=== PATIENT | female | born 1970 | race Caucasian/White ===

== ENCOUNTER 2024-03-09 22:22 | Inpatient (IN) | payer OTHER, SELFPAY ==
[2024-03-09 18:29] VITALS: BP 137/87
--- NOTE | 2024-03-09 18:29 | ED.GENMED ---
ED Provider Triage
<THONG Santillan Jr. Last Filed: 03/09/24 18:32>
-
Patient seen by provider in Triage?: Seen in Triage
Attestation: A medical screening examination has been initiated by a qualified medical provider. Based on the assessment performed at this time, it has been determined that an emergent medical condition may exist and the patient has been informed
that further medical evaluation and possible additional diagnostic testing may be needed.
HPI: 53-year-old female presenting to the emergency department today with concerns of ongoing cough. Was treated for potential pneumonia with doxycycline 1 week ago at an urgent care but symptoms worsening today went back to the urgent care had an
x-ray that showed a new infiltrate there concern of failed outpatient management. Patient has immunosuppression due to taking immunosuppressive medications for autoimmune disorder. Initial labs ordered patient may need escalation of care
GENERAL: Alert , in no apparent distress
EYE: No visual abnormalities.
NECK: Trachea midline
ENT: No visible abnormalities.
LUNGS: No acute respiratory distress
NEUROLOGICAL: Alert and oriented
SKIN: Skin intact. No visible changes.
MUSCULOSKELETAL: Moving extremities normally
PSYCH: Normal and appropriate interaction.
This is a medical evaluation conducted in person to initiate diagnostic evaluation and provide initial therapeutics. Please see further documentation by the treating clinician.
History of Present Illness
<THONG Santillan Jr. Last Filed: 03/09/24 18:32>
General
Chief Complaint: Breathing Problem
Time Seen by Provider: 03/09/24 20:45
<Asif Radford DO - Last Filed: 03/09/24 23:15>
General
Source: patient, records and spouse
Exam Limitations: none
Nursing documentation reviewed up to this point in time: agreed with
History of Present Illness
History of Present Illness:
Agree with provider triage note
Past History
<THONG Santillan Jr. Last Filed: 03/09/24 18:32>
Past History
ED Past Medical History: HTN, Other (Neuropathy), Other (Migraines) and Other (Hiatal hernia)
ED Past Surgical History: Tonsilectomy and Other (Left breast biopsy, ACL repair)
Social History
Tobacco: Smoker
Drug: None
Personal:
Living: with family
Employment: Not employed
Family History
Family History: Other
Review of Systems
<Asif Radford, DO - Last Filed: 03/09/24 23:15>
Review of Systems
Allergies reviewed?: Yes
All Other Systems: Not applicable
Constitutional: Reports fever and chills
EENT: Reports no symptoms
Respiratory: Reports cough and trouble breathing
Cardiac: Reports no symptoms
ABD/GI: Reports no symptoms
: Reports no symptoms
Musculoskeletal: Reports no symptoms
Skin: Reports no symptoms
Neurological: Reports no symptoms
Endocrine: Reports no symptoms
Hematologic/Lymphatic: Reports no symptoms
Psychiatric: Reports no symptoms
Phy Exam
<Asif Radford, DO - Last Filed: 03/09/24 23:15>
Physical Exam
Physical Exam:
Physical Exam
General: Afebrile
Neck: supple. no meningeal signs. normal posterior pharynx
Heart: s1/s2 regular rate and rhythm, no murmur. equal radial
pulses.
HEENT: Pupils equal round reactive to light, EOMI
Lungs: Mild respiratory distress. Rhonchi right lung base
Abdomen: normal bowel sounds. not tender. no CVAT
Neuro: alert and oriented. no focal neurological deficits cranial nerves II through XII intact
Skin: no rash
Psychiatric: well kept. interactive and cooperative
Extremities: no edema. no calf tenderness. negative homans. good distal pulses
Scores
<Asif aRdford, DO - Last Filed: 03/09/24 23:15>
Heart Failure Risk
Heart Failure Risk Score: Not Applicable
Course
<Tyrell Huffman Jr., PA-C - Last Filed: 03/09/24 18:32>
Orders/Labs/Results
Orders:
Orders
03/09/24 18:42
Complete Blood Count/With Diff Urgent
Comprehensive Metabolic Panel Urgent
Lactic Acid Urgent
Magnesium Urgent
NT-proBNP Urgent
Troponin I Urgent
03/09/24 21:14
COVID-19 Antigen Urgent
Source: Nasal Swab
Lactic Acid Q4H
Comment: CANCEL 2nd LACTIC ACID IF 1st LACTIC ACID IS LESS THAN 2
Blood Culture Q30M
[place] Source: Blood/Venous
Specimen Description:
Influenza A+B Rapid Molecular Urgent
NANDA Source: Nasal Swab
Specimen Description:
03/09/24 21:21
CefTRIAXone [Rocephin] 2,000 mg IV NOW STA
Doxycycline [Vibramycin] 100 mg PO NOW STA
03/09/24 21:33
Blood Culture Q30M
NAN[place] Source: Blood/Venous
Specimen Description:
03/09/24 21:58
Admit/Transfer Patient As Directed
Co-Sign Provider:
Level of Care: Inpatient admission
Assign to:: Medical/Surgical
Physician / Group: livia
Diagnosis: pnueumonia
Reason for Hospitalization: pneumonia
Expected length of stay greater than two midnights?: Yes
ELOS- Estimated Length of Stay in days: 3
I certify the patient meets the requirements for IP care: Yes
PRN Pain Medication Management As Directed
May give lesser potent ordered pain med per pt: Yes
preference::
Protocol:: Medication orders for pain may be administered in a
manner that supports deferring to patient preference
when the pt is:
- Requesting an ordered lesser potent pain medication.
Least to most potent pain medications are defined
as: acetaminophen < NSAID < tramadol < opioids
(morphine, oxycodone, hydromorphone).
- Requesting a lesser dose of the same medication IF
ORDERED.
- Requesting a less intrusive route of administration
if both routes are prescribed by the provider (PO <
IV).
03/09/24 21:59
Code Status As Directed
Resuscitation Status: Full Code
Abnormal Lab Results
03/09/24
18:42
WBC 18.5 H 10^3/uL
(4.8-10.8)
MCH 31.5 H pg
(27.0-31.0)
Plt Count 504 H 10^3/uL
(130-400)
Abs Immat Gran (auto) 0.2 H 10^3/uL
(0-0.05)
Absolute Neuts (auto) 15.2 H 10^3/uL
(1.4-6.5)
Absolute Monos (auto) 0.7 H 10^3/uL
(0.1-0.6)
Immature Gran % 1.2 H %
(0-0.5)
Neutrophils % 82.2 H %
(42.2-75.2)
Lymphocytes % 12.3 L %
(20.5-51.1)
BUN 18 H mg/dl
(7-17)
Glucose 121 H mg/dl
(70-99)
03/09/24 18:42
03/09/24 18:42
Vital Signs
Initial and Last Documented VS:
Initial Vital Signs
Temp Pulse Resp BP
98.4 F 84 20 137/87
03/09/24 18:29 03/09/24 18:29 03/09/24 18:29 03/09/24 18:29
Last Documented Vital Signs
Temp Pulse Resp BP Pulse Ox
98.4 F 60 13 142/76 94
03/09/24 18:29 03/09/24 22:00 03/09/24 22:00 03/09/24 22:00 03/09/24 22:00
<Asif Radford, DO - Last Filed: 03/09/24 23:15>
Orders/Labs/Results
Orders:
Orders
03/09/24 18:42
Complete Blood Count/With Diff Urgent
Comprehensive Metabolic Panel Urgent
Lactic Acid Urgent
Magnesium Urgent
NT-proBNP Urgent
Troponin I Urgent
03/09/24 21:14
COVID-19 Antigen Urgent
Source: Nasal Swab
Lactic Acid Q4H
Comment: CANCEL 2nd LACTIC ACID IF 1st LACTIC ACID IS LESS THAN 2
Blood Culture Q30M
NANDA Source: Blood/Venous
Specimen Description:
Influenza A+B Rapid Molecular Urgent
NANDA Source: Nasal Swab
Specimen Description:
03/09/24 21:21
CefTRIAXone [Rocephin] 2,000 mg IV NOW STA
Doxycycline [Vibramycin] 100 mg PO NOW STA
03/09/24 21:33
Blood Culture Q30M
NANDA Source: Blood/Venous
Specimen Description:
03/09/24 21:58
Admit/Transfer Patient As Directed
Co-Sign Provider:
Level of Care: Inpatient admission
Assign to:: Medical/Surgical
Physician / Group: livia
Diagnosis: pnueumonia
Reason for Hospitalization: pneumonia
Expected length of stay greater than two midnights?: Yes
ELOS- Estimated Length of Stay in days: 3
I certify the patient meets the requirements for IP care: Yes
PRN Pain Medication Management As Directed
May give lesser potent ordered pain med per pt: Yes
preference::
Protocol:: Medication orders for pain may be administered in a
manner that supports deferring to patient preference
when the pt is:
- Requesting an ordered lesser potent pain medication.
Least to most potent pain medications are defined
as: acetaminophen < NSAID < tramadol < opioids
(morphine, oxycodone, hydromorphone).
- Requesting a lesser dose of the same medication IF
ORDERED.
- Requesting a less intrusive route of administration
if both routes are prescribed by the provider (PO <
IV).
03/09/24 21:59
Code Status As Directed
Resuscitation Status: Full Code
Abnormal Lab Results
03/09/24
18:42
WBC 18.5 H 10^3/uL
(4.8-10.8)
MCH 31.5 H pg
(27.0-31.0)
Plt Count 504 H 10^3/uL
(130-400)
Abs Immat Gran (auto) 0.2 H 10^3/uL
(0-0.05)
Absolute Neuts (auto) 15.2 H 10^3/uL
(1.4-6.5)
Absolute Monos (auto) 0.7 H 10^3/uL
(0.1-0.6)
Immature Gran % 1.2 H %
(0-0.5)
Neutrophils % 82.2 H %
(42.2-75.2)
Lymphocytes % 12.3 L %
(20.5-51.1)
BUN 18 H mg/dl
(7-17)
Glucose 121 H mg/dl
(70-99)
03/09/24 18:42
03/09/24 18:42
Vital Signs
Initial and Last Documented VS:
Initial Vital Signs
Temp Pulse Resp BP
98.4 F 84 20 137/87
03/09/24 18:29 03/09/24 18:29 03/09/24 18:29 03/09/24 18:29
Last Documented Vital Signs
Temp Pulse Resp BP Pulse Ox
98.4 F 60 13 142/76 94
03/09/24 18:29 03/09/24 22:00 03/09/24 22:00 03/09/24 22:00 03/09/24 22:00
<Asif Radford DO - Last Filed: 03/09/24 23:15>
MDM/Problems Addressed
Differential Diagnosis Includes:
Pneumonia, PE
MDM/Problems Addressed:
53-year-old female with pneumonia, failing outpatient treatment.
Chronic conditions affecting care: Other (Psoriatic arthritis)
<Asif Radford DO - Last Filed: 03/09/24 23:15>
*Radiology
Radiology exam reviewed: radiology read reviewed (Chest x-ray from urgent care shows hazy infiltrate right lung base)
*Pulse Oximetry
Patient hypoxic: no
*Critical Care Note
Total Time (30-74mins, 75-104mins- exclusive of procedures): Not Applicable
Data Reviewed
Review of Other/Old Records Reveals: Radiology Studies (cxr from shows right side pneumonia)
Source: records
<Asif Radford DO - Last Filed: 03/09/24 23:15>
Patient Management
Social determinants of health affecting care: Living situation
Discussion with other providers: Hospitalist
Escalation/DeEscalation of care consider admission/obs:
admit indicated
ED Attending Note
<Tyrell Huffman Jr., PA-C - Last Filed: 03/09/24 18:32>
-
Portions of this chart may have been created with voice recognition software.� Occasional wrong word or��sound alike� substitutions may have occurred due to the inherent limitations of voice recognition software.
Discharge Plan
Departure
Patient Disposition: Admit
Date of Disposition: 03/09/24
Time of Disposition: 21:15
Admit to: Med/Surg
Presentation/result/management discussed w/ accepting MD/DO: Hospitalist
Patient with high blood pressure during this ER visit?: Yes
Condition: Fair
Discharge Problem:
Right lower lobe pneumonia
Interventions
Interventions:
*Risk Screen - Suicide Last Done: 03/09/24 18:29
*General Assessment Last Done: 03/09/24 18:29
*Neglect/Abuse Screening Last Done: 03/09/24 18:29
ED- Fall Risk Assessment Last Done: 03/09/24 20:47
*ED COVID-19 Vaccine History Last Done: 03/09/24 20:46
ED- Cardiac Assessment Last Done: 03/09/24 20:47
ED- Pulmonary Assessment Last Done: 03/09/24 20:47
[2024-03-09 18:58] LABS: % Basophils 0.4 % (0-2); % Eosinophils 0.1 % (0-6); % Immature Granulocytes 1.2 % (0-0.5); % Lymphocytes 12.3 % (20.5-51.1); % Monocytes 3.8 % (1.7-9.3); % Neutrophils 82.2 % (42.2-75.2); Absolute Basophils 0.1 10^3/uL (0-0.2); Absolute Immature Granulocytes 0.2 10^3/uL (0-0.05); Absolute Lymphocytes 2.3 10^3/uL (1.2-3.4); Absolute Monocytes 0.7 10^3/uL (0.1-0.6); Absolute Neutrophils 15.2 10^3/uL (1.4-6.5); Hematocrit 43.3 % (37.0-47.0); Hemoglobin 14.9 g/dL (12.0-16.0); Mean Corp Hgb Conc. 34.4 g/dL (33.0-37.0); Mean Corpuscular Hgb 31.5 pg (27.0-31.0); Mean Corpuscular Volume 91.5 fL (81.0-99.0); Mean Platelet Volume 8.6 fL (7.4-10.4); Nucleated Red Blood Cells % 0 %; Platelet Count 504 10^3/uL (130-400); Red Blood Cell Count 4.73 10^6/uL (4.20-5.40); Red Cell Dist. Width 12.4 % (11.5-14.5); White Blood Cell Count 18.5 10^3/uL (4.8-10.8)
[2024-03-09 19:07] LABS: Lactic Acid 1.7 mmol/L (0.7-2.0)
[2024-03-09 19:22] LABS: NT-proBNP 51.4 pg/ml; Troponin I < 0.012 ng/ml
[2024-03-09 19:23] LABS: ALT (SGPT) 29 U/L (0-35); AST (SGOT) 24 U/L (14-36); Albumin 4.8 g/dl (3.5-5.0); Alkaline Phosphatase 70 U/L (38-126); Blood Urea Nitrogen 18 mg/dl (7-17); Carbon Dioxide 25 mmol/L (22-30); Chloride 101 mmol/L (98-107); Glucose 121 mg/dl (70-99); Magnesium 2.2 mg/dl (1.6-2.3); Potassium 4.6 mmol/L (3.5-5.1); Sodium 138 mmol/L (135-145); Total Bilirubin 0.5 mg/dl (0.2-1.3); Total Protein 7.4 g/dl (6.3-8.2); eGFR > 60.00
[2024-03-09 20:45] VITALS: BP 153/70
[2024-03-09 20:46] VITALS: BMI 32.7
[2024-03-09 21:00] VITALS: BP 136/88
[2024-03-09] MEDS: VIBRAMYCIN 100 MG PO (21:32)
[2024-03-09] MEDS: ROCEPHIN 2000 MG IV (21:34)
--- NOTE | 2024-03-09 21:35 | HPS.HSE ---
Family Physician
-
Family Physician: NOT KNOW UNKNOWN - PT DOES
Chief Complaint
-
cough
History of Present Illness
53-year-old female with PMH for psoriasis, migraine HOSKINS, anxiety presented to us with productive cough with greenish yellow sputum for past three weeks. patient also stated intermittent greenish bloody drainage from nose as well. she is been having
fever for past six days. her highest temp was 101. she was taking Tylenol at home. she was evaluated by urgent care last . she was prescribed prednisone, doxy and albuterol for walking pneumonia with no relief in her symptoms. she went to
urgent care today. the chest x ray obtained today at urgent care was noted to have developing pneumonia. she complained of frontal HOSKINS. she was also noted dizzy. she also complained of b/l side pain pain. right side hurts more than left. denied
abdominal pain,n,v,d. denied dysuria or hematuria.
patient received iv ceftriaxone and doxy in ER. admitting for further management.
Medical History
Past Medical History
Past Medical History: Reports Other
Additional Past Medical History:
migraine HOSKINS
degnerative disc disease
psoriasis
Past Surgical History: Reports Other
Additional Past Surgical History:
tonsillectomy
hysterectomy
breast lumpectomy
ACL repair
Social History
Tobacco: Smoker (1-2 cigarettes' daily)
Alcohol: Occasional
Drug: Other (occasional weeds)
Personal:
Living: With Family
Family History
Family History: Not pertinent
Allergies / Home Medications
Allergies reflects when Allergies were last updated in [facility].
Home Medications with original date entered in [facility]
Allergy/Medication List:
Allergies
Allergy/AdvReac Type Severity Reaction Status Date / Time
amoxicillin Allergy Unknown Hives Verified 03/09/24 18:35
levofloxacin [From Levaquin] Allergy Unknown Hives Verified 03/09/24 18:35
adhesive Allergy Rash Verified 03/09/24 18:35
Penicillins Allergy GI upset Verified 03/09/24 18:35
Home Medications
acetaminophen 500 mg tablet (Tylenol Extra Strength) 1,000 mg PO BID 03/09/24
albuterol sulfate 90 mcg/actuation aerosol inhaler 2 puff inhalation R QID 03/09/24
cyclosporine 0.05 % eye drops in a dropperette (Restasis) 2 drp BOTH EYES HS 03/09/24
diphenhydramine 25 mg-acetaminophen 500 mg tablet (Tylenol PM Extra Strength) 2 tab PO HS 03/09/24
doxycycline hyclate 100 mg capsule 100 mg PO DAILY 03/09/24
sertraline 50 mg tablet 50 mg PO DAILY 03/09/24
therapeutic multivitamin 2 tab PO DAILY 03/09/24
Review of Systems
-
Constitutional: Reports Fever
EENT: Reports No Symptoms
Respiratory: Reports Cough and Trouble Breathing
Cardiac: Reports Chest Pain
Abdomen/GI: Reports No Symptoms
: Reports No Symptoms
Musculoskeletal: Reports No Symptoms
Skin: Reports No Symptoms
Neurological: Reports Dizzy and Headache
Endocrine: Reports No Symptoms
Hematologic/Lymphatic: Reports No Symptoms
Psych: Reports No Symptoms
Physical Exam
Vital Signs
Vital Signs
Temp Pulse Resp BP Pulse Ox
98.4 F 84 20 153/70 97
03/09/24 18:29 03/09/24 18:29 03/09/24 18:29 03/09/24 20:45 03/09/24 20:47
Physical Exam
General: Well Developed, Well Nourished and No Apparent Distress
HEENT: NormoCephalic, Moist mucous membranes and Atraumatic
Respiratory: Rhonchi
Cardiac: S1/S2 and Regular Rhythm; No Murmur or Rub
GI: Soft, Non Tender, Non Distended and Normal Bowel Sounds; No Organomegaly
Rectal: Deferred by Provider
Musculoskeletal: No Clubbing, No Cyanosis and No Edema
Skin: No Rash
Neuro: AO x 3 and Nonfocal/grossly intact
Psych: Calm
Laboratory Results
-
03/09/24 18:42
03/09/24 18:42
Laboratory Results
Lactic Acid 2.0 mmol/L (0.7-2.0) 03/09/24 21:14
Total Bilirubin 0.5 mg/dl (0.2-1.3) 03/09/24 18:42
AST 24 U/L (14-36) 03/09/24 18:42
ALT 29 U/L (0-35) 03/09/24 18:42
Alkaline Phosphatase 70 U/L (38-126) 03/09/24 18:42
Troponin I < 0.012 ng/ml 03/09/24 18:42
Data Reviewed
-
Lab Data: Labs Reviewed by me
Impression/Plan
-
#right lower lobe pneumonia
-failed outpatient abx therapy
-wbc 18.5
-covid and flu negative
-blood culture sent from ER
-iv ceftriaxone and doxy continued
-nebs prn for sob
-Tylenol prn for fever
-Mucinex for cough
-obtain sputum culture, strep pneumoniae, urine legionella
-chest x ray from urgent care with new developing pneumonia.
# Depression
Sertraline continued
#hxt of psoriasis
-on Tremfya every 8 weeks
-last dose was end of December
#nicotine dependence
-refused nicotine patch
# DVT prophylaxis
-Lovenox
# CODE STATUS
-Full code
[2024-03-09 21:39] LABS: COVID-19 Antigen Negative (Negative)
[2024-03-09 22:00] VITALS: BP 142/76
--- NOTE | 2024-03-09 22:49 | W.PN.UPDATE ---
Update Note
Progress Note Update
This is an addendum to the H&P written by the [facility] on 03/09/2024. Patient seen and examined independently with DEPARTMENT OPERATIONS MANAGER.
53-year-old female past medical history of psoriasis, anxiety/depression, presenting with 3 weeks of ongoing productive cough, shortness of breath, chest discomfort with cough, chills, which initially started with sore throat. She went to urgent
care 1 week ago started on doxycycline, prednisone and DuoNebs without improvement.
Patient chest x-ray report shows right lower lobe pneumonia. Patient not clinically septic. Labs show leukocytosis.
COVID and influenza negative. Ceftriaxone/doxycycline. Check sputum culture, strep antigen, Legionella.
[2024-03-09 23:00] VITALS: BP 137/77
[2024-03-10 00:01] VITALS: BP 122/88; BMI 31.9
--- NOTE | 2024-03-10 00:07 | PTCARENOTE ---
Pt admitted to 1142-2 from ED. Ambulated with steady gait from stretcher to bed. AAOx3, oriented to environment. Call edwards within reach.
[2024-03-10] MEDS: MUCINEX 600 MG PO ×3 (00:50→19:34)
[2024-03-10] MEDS: VIBRAMYCIN 260 MG IV ×3 (00:50→23:02)
[2024-03-10] MEDS: RESTASIS 0.05% OPHTHALMIC EMULSION 2 DROPS BOTH EYES ×2 (00:50→20:58)
[2024-03-10] MEDS: TYLENOL 650 MG PO ×2 (01:00→18:31)
[2024-03-10 06:43] LABS: Hematocrit 38.5 % (37.0-47.0); Hemoglobin 13.2 g/dL (12.0-16.0); Mean Corp Hgb Conc. 34.3 g/dL (33.0-37.0); Mean Corpuscular Hgb 31.8 pg (27.0-31.0); Mean Corpuscular Volume 92.8 fL (81.0-99.0); Mean Platelet Volume 8.9 fL (7.4-10.4); Platelet Count 408 10^3/uL (130-400); Red Blood Cell Count 4.15 10^6/uL (4.20-5.40); Red Cell Dist. Width 12.4 % (11.5-14.5); White Blood Cell Count 16.7 10^3/uL (4.8-10.8)
[2024-03-10 07:43] VITALS: BP 128/76
[2024-03-10] MEDS: ZOLOFT 50 MG PO (10:18)
--- NOTE | 2024-03-10 10:51 | CM ---
Patient seen bedside.
IA completed.
Patient lives with spouse in a 2 story home with 3 steps to enter.
Patient independent prior to admission without assistive devices.
Patient works and drives.
Patient denies home care needs.
PCP: Dr Elvira Alvarez
Pharmacy: [facility]
Plan:home no needs.
--- NOTE | 2024-03-10 15:04 | W.PN.HOSP.TC ---
Today's Communication/Plan
-
cont iv abx
f/u cultures
Assessment / Plan
Assessment / Plan
Physical Exam
General: Well Developed, Well Nourished and No Apparent Distress
HEENT: NormoCephalic, Moist mucous membranes and Atraumatic
Respiratory: audible cough, no wheezing
Cardiac: S1/S2 and Regular Rhythm; No Murmur or Rub
GI: Soft, Non Tender, Non Distended and Normal Bowel Sounds; No Organomegaly
Rectal: Deferred by Provider
Musculoskeletal: No Clubbing, No Cyanosis and No Edema
Skin: No Rash
Neuro: AO x 3 and Nonfocal/grossly intact
Psych: Calm
#right lower lobe pneumonia
-covid and flu negative
-blood culture sent from ER
-sputum cultures if expectorating
-iv ceftriaxone and doxy continued
-nebs prn for sob
-Tylenol prn for fever
-Mucinex for cough
-obtain sputum culture, strep pneumoniae, urine legionella
# Depression
Sertraline continued
#hxt of psoriasis
-on Tremfya every 8 weeks
-last dose was end of December
#nicotine dependence
-refused nicotine patch
# DVT prophylaxis
-Lovenox
# CODE STATUS
-Full code
Anticipated Discharge: Within 24 hours
Subjective/Interval History
-
Date of Service: March 10, 2024
feeling better - brain fog has improved
Objective Data
-
Labs:
Laboratory Results
03/10/24
06:03
WBC 16.7 H
Hgb 13.2
Hct 38.5
Plt Count 408 H
Vital Signs:
Vital Signs
Temp Pulse Resp BP Pulse Ox
98.2 F 50 17 128/76 95
03/10/24 07:43 03/10/24 07:43 03/10/24 07:43 03/10/24 07:43 03/10/24 07:43
I&O
03/09/24 03/10/24 03/11/24
06:59 06:59 06:59
Intake Total 260 / 260 900 / 900
Balance 260 / 260 900 / 900
Review of Systems
-
History Source: Patient
All other systems: Not reviewed unless documented
Data Reviewed
-
Diagnostic Radiology: Report Reviewed by me
Labs: Labs Reviewed by me
--- NOTE | 2024-03-10 15:09 | PTCARENOTE ---
Patient ambulating in halls with a steady gait. Patient still with harsh NPC, no c/o pain.
[2024-03-10 15:23] VITALS: BP 147/70
[2024-03-10] MEDS: LOVENOX 40 MG SC (18:27)
[2024-03-10] MEDS: ROCEPHIN 1000 MG IV (20:49)
[2024-03-10] MEDS: STERILE WATER FOR INJECTION 10 ML IV (20:56)
[2024-03-10] MEDS: BENADRYL 50 MG PO (20:57)
[2024-03-10] MEDS: TYLENOL 1000 MG PO (23:02)
[2024-03-10 23:05] VITALS: BP 120/75
[2024-03-11 07:42] VITALS: BP 120/69
[2024-03-11 07:44] LABS: Hematocrit 40.7 % (37.0-47.0); Hemoglobin 13.2 g/dL (12.0-16.0); Mean Corp Hgb Conc. 32.4 g/dL (33.0-37.0); Mean Corpuscular Hgb 31.4 pg (27.0-31.0); Mean Corpuscular Volume 96.9 fL (81.0-99.0); Mean Platelet Volume 8.8 fL (7.4-10.4); Platelet Count 361 10^3/uL (130-400); Red Cell Dist. Width 12.7 % (11.5-14.5); White Blood Cell Count 11.6 10^3/uL (4.8-10.8)
[2024-03-11 07:53] LABS: Blood Urea Nitrogen 14 mg/dl (7-17); Carbon Dioxide 27 mmol/L (22-30); Chloride 104 mmol/L (98-107); Estimated Creatinine Clearance 98 ml/min; Glucose 83 mg/dl (70-99); Potassium 3.9 mmol/L (3.5-5.1); Sodium 138 mmol/L (135-145); eGFR > 60.00
[2024-03-11] MEDS: ZOLOFT 50 MG PO (08:43)
[2024-03-11] MEDS: MUCINEX 600 MG PO (08:43)
--- NOTE | 2024-03-11 11:34 | W.PN.HOSP.TC ---
Today's Communication/Plan
-
complete abx course outpt
f/u pcp within 1 week
Incentive spirometer, Acapella
Assessment / Plan
Assessment / Plan
Physical Exam
General: Well Developed, Well Nourished and No Apparent Distress
HEENT: NormoCephalic, Moist mucous membranes and Atraumatic
Respiratory: audible cough, no wheezing
Cardiac: S1/S2 and Regular Rhythm; No Murmur or Rub
GI: Soft, Non Tender, Non Distended and Normal Bowel Sounds; No Organomegaly
Rectal: Deferred by Provider
Musculoskeletal: No Clubbing, No Cyanosis and No Edema
Skin: No Rash
Neuro: AO x 3 and Nonfocal/grossly intact
Psych: Calm
#right lower lobe pneumonia
-covid and flu negative
-blood culture sent from ER - so far neg - as afebrile and presenting with cough, blood cultures not always necessary
-no expectoration
-iv ceftriaxone and doxy continued�continue cefdinir for additional 6 days to complete 7-day course; continue doxycycline for additional 4 days
-nebs prn for sob
-Tylenol prn for fever
-Mucinex for cough
-f/u pcp outpatient
# Depression
Sertraline continued
#hxt of psoriasis
-on Tremfya every 8 weeks
-last dose was end of December
#nicotine dependence
-refused nicotine patch
# DVT prophylaxis
-Lovenox
# CODE STATUS
-Full code
More than 30 minutes spent in discharge including
Final examination of the patient
Summarizing hospital stay
Instructions for continuing care to all relevant caregivers
Preparation of discharge records, prescriptions, and referral forms
Total time spent (35 in minutes):
Anticipated Discharge: Today
Subjective/Interval History
-
Date of Service: March 11, 2024
feeling better, although tired; vitals improved
Objective Data
-
Labs:
Laboratory Results
03/11/24
06:40
WBC 11.6 H
Hgb 13.2
Hct 40.7
Plt Count 361
Sodium 138
Potassium 3.9
Chloride 104
Carbon Dioxide 27
BUN 14
Creatinine 0.8
Glucose 83
Calcium 9.0
Vital Signs:
Vital Signs
Temp Pulse Resp BP Pulse Ox
98.4 F 63 16 120/69 96
03/11/24 07:42 03/11/24 07:42 03/11/24 07:42 03/11/24 07:42 03/11/24 07:42
I&O
03/10/24 03/11/24 03/12/24
06:59 06:59 06:59
Intake Total 260 / 260 900 / 900
Balance 260 / 260 900 / 900
Review of Systems
-
History Source: Patient
All other systems: Not reviewed unless documented
Data Reviewed
-
Diagnostic Radiology: Report Reviewed by me
Labs: Labs Reviewed by me
--- NOTE | 2024-03-11 11:43 | W.DS.TRANS ---
DC Summary - Summer Sessions Director
-
Discharge Instructions:
Discharge Diagnosis/Procedures #right lower lobe pneumonia
Diet Regular
Activity As tolerated
Additional Activity Avoid overexertion for 1 week and or untill
cleared by PCP
Blood Work CBC in 5 to 7 days with PCP monitoring white
count
Instructions:
Stand-Alone Forms:
Changes to Home Medications: Yes
Discharge Medications:
DC Medications w/original date entered in [facility]
albuterol sulfate 90 mcg/actuation aerosol inhaler 2 puff inhalation R QID Lung/Breathing Issues 03/09/24
cyclosporine 0.05 % eye drops in a dropperette (Restasis) 2 drp BOTH EYES HS Eye Condition 03/09/24
sertraline 50 mg tablet 50 mg PO DAILY Mental Health/Anxiety 03/09/24
therapeutic multivitamin 2 tab PO DAILY Supplement 03/09/24
acetaminophen 325 mg tablet 650 mg (2 x 325 mg) PO Q4HPRN PRN if temp > 101 F #0 tabs 03/11/24
cefdinir 300 mg capsule 300 mg PO BID 6 days #12 caps 03/11/24
diphenhydramine 25 mg-acetaminophen 500 mg tablet (Tylenol PM Extra Strength) 2 tab PO HS PRN Sleep #0 tabs 03/11/24
doxycycline hyclate 100 mg capsule 100 mg PO BID Infection 4 days #8 caps 03/11/24
guaifenesin 600 mg tablet, extended release 12 hr 600 mg PO Q12 PRN Cough 7 days #14 tabs 03/11/24
Home Medication Changes
cefdinir 300 mg capsule 300 mg PO BID 6 days #12 caps 03/11/24
diphenhydramine 25 mg-acetaminophen 500 mg tablet (Tylenol PM Extra Strength) 2 tab PO HS PRN Sleep #0 tabs 03/11/24
doxycycline hyclate 100 mg capsule 100 mg PO BID Infection 4 days #8 caps 03/11/24
guaifenesin 600 mg tablet, extended release 12 hr 600 mg PO Q12 PRN Cough 7 days #14 tabs 03/11/24
Pending Results: No
[2024-03-11] MEDS: VIBRAMYCIN 260 MG IV (11:45)
--- NOTE | 2024-03-11 13:50 | CM ---
Patient seen at bedside with daughter
CXR today
No IMM needed
PLAN: Home, no needs
daughter to transport
[2024-03-11 15:07] VITALS: BP 145/74
== END 2024-03-11 18:32 | disposition home or self-care (01) | DRG 194 ==
LOC: 1 ACUTE 22:22
PROVIDERS: Physician Assistant; Registered Nurse; ADMITTING PHYSICIAN Hospitalist; ATTENDING PHYSICIAN Internal Medicine; EMERGENCY PHYSICIAN Emergency Medicine
DX: J18.9 Pneumonia, unspecified organism (principal); D84.9 Immunodeficiency, unspecified; F17.210 Nicotine dependence, cigarettes, uncomplicated; F32.A Depression, unspecified; Z11.52 Encounter for screening for COVID-19
CPT/HCPCS: 71046; 80048; 80053; 83605; 83735; 83880; 84484; 85025; 85027; 87040; 87502; 87811; 96374; 99285; 99406